=== PATIENT | male | born 1985 | race African-American/Black ===

== ENCOUNTER → 2018-10-27 10:36 | Outpatient (CLI) | payer MEDICAID, SELFPAY ==
[2018-10-26 13:20] VITALS: BMI 33.1
[2018-10-27 10:50] LABS: Bacteria 0 SEEN /hpf (None Seen); Mucous, Urine 0 SEEN /hpf (<or=2+); Red Blood Cells-Urine 0 SEEN /hpf (0-5); Squamous Epithelial Cells - UA 0 SEEN /hpf (0-5); White Blood Cells 0 SEEN /hpf (0-5)
[2018-10-27 11:19] LABS: Absolute Lymphocyte Count 1.55 X10^3/ul (0.83-4.51); Absolute Neutrophil Count 5.1 X10^3/uL (2.0-7.7); Basophil# 0.02 X10^3/uL; Basophil% 0.3 % (0-1); Eosinophil# 0.18 X10^3/uL; Eosinophils% 2.4 % (0-5); Hemoglobin 15.1 g/dl (13.0-16.5); Lymphocyte # 1.55 X10^3/ul (4.0); Lymphocyte % 20.9 % (19-41); Mean Corp Hgb Conc 32.8 g/gl (32-36); Mean Corpuscular Hgb 26.5 pg (27.0-32.0); Mean Corpuscular Volume 80.8 fL (80-94); Monocyte# 0.52 X10^3/uL; Neutrophil # 5.13 X10^3/uL (2.7-7.7); Neutrophil % 69.1 % (47-70); Platelet Count 177 K/mm3 (150-450); RBC Distribution Width CV 14.4 % (11.6-14.6); Red Blood Count 5.69 M/mm3 (4.6-6.2); White Blood Count 7.4 K/mm3 (4.4-11.0)
[2018-10-27 11:21] LABS: POSITIVE COUNT NO; POSITIVE DIFFERENTIAL NO; POSITIVE MORPHOLOGY NO
[2018-10-27 11:48] LABS: AST(SGOT) 20 U/L (15-37); Alanine Aminotransfer ALT/SGPT 43 U/L (16-61); Albumin, Serum 3.5 g/dL (3.2-5.0); Alkaline Phosphatase 78 U/L (45-117); Anion Gap 8 (5-15); BUN 12 mg/dL (7-18); BUN/Creat Ratio 11.7 RATIO (10-20); Calcium,Total 8.5 mg/dL (8.5-10.1); Chloride 111 mmol/L (98-107); Cholesterol 200 mg/dL (200); Creatinine, Serum 1.03 mg/dL (0.70-1.30); EST Glomerular Filtration Rate 88 mL/min (>60); Est Glom Filt Rate - Afr Amer 107 mL/min (>60); Globulin 3.4 g/dL (2.2-4.2); Glucose 92 mg/dL (74-106); High Density Lipoprotein 34 mg/dL; Potassium 4.1 mmol/L (3.5-5.1); Protein, Total 6.9 g/dL (6.4-8.2); Sodium Level 144 mmol/L (136-145); Thyroid Stim Hormone (TSH) 0.72 uIU/mL (0.358-3.74); Triglycerides 182 mg/dL; Very Low Density Lipoprotein 36 mg/dL (5-40)
[2018-10-27 12:20] LABS: HIV - WCH Non-Reactive (Nonreactive)
[2018-10-27 14:23] LABS: Color, Urine Yellow (Yellow); Glucose, Dipstick Normal (Normal); Ketone-Dipstick Negative (Negative); Leukocyte Esterase-Dipstick Negative /ul (Negative); Nitrite-Dipstick Negative (Negative); Occult Blood-Urine Negative /ul (Negative); Protein-Dipstick Negative (Negative); Specific Gravity, Urine 1.005 (1.002-1.030); Urine Bilirubin Dipstick Negative (Negative); Urine Clarity Clear (Clear); Urine Urobilinogen Normal (Normal)
[2018-10-27 15:28] LABS: Chlamydia Trachomatis by PCR Negative (Negative); Neisserai gonorrhoeae by PCR Negative (Negative); Probe Check PASS; Sample Adequacy Control PASS; Specimen Processing Control PASS
[2018-10-28 14:39] LABS: Hep C Antibodies <0.1 s/co ratio (0.0-0.9)
[2018-10-29 03:31] LABS: Rapid Plasmin Reagin (RPR) NONREACTIVE (NONREACTIVE)
== END ==
PROVIDERS: Family Provider Internal Medicine; PCP Internal Medicine; Referring Provider Nurse Practitioner Family; Visit Provider Nurse Practitioner Family
DX: R53.1 Weakness (principal); Z79.899 Other long term (current) drug therapy; Z72.51 High risk heterosexual behavior; Z13.0 Encounter for screening for diseases of the blood and blood-forming organs and certain disorders involving the immune mechanism; Z13.220 Encounter for screening for lipoid disorders; Z13.29 Encounter for screening for other suspected endocrine disorder
CPT/HCPCS: 36415; 80053; 80061; 81001; 84443; 85025; 86592; 86703; 86803; 87491; 87591

== ENCOUNTER → 2018-11-15 10:01 | Outpatient (CLI) | payer MEDICAID, SELFPAY ==
[2018-11-15 09:57] VITALS: BMI 33.1
--- NOTE | 2018-11-15 10:06 | RAD_ITS ---
STUDY: X-RAY - LEFT WRIST REASON FOR EXAM: Male, 33 years old. Pain, no injury TECHNIQUE: 3 view(s) of the wrist were obtained. COMPARISON: None. FINDINGS: There is a chronic small indentation of the cortical margin of the triquetral bone potentially associated with chronic impaction upon the ulnar styloid. There is however no irregularity of the ulnar styloid. Does the patient have lateral wrist pain? Intercarpal articulations normal. Radiocarpal articulation and distal radioulnar joint normal. Soft tissues normal. RAD/Wrist min 3 Views IMPRESSION: Cortical indentation of the lateral margin of the triquetral bone could potentially be associated with ulnar impaction. Correlate clinically for lateral wrist pain. Otherwise unremarkable study. Electronically Signed: Donald Alba MD at 10:41 EST Tel , Service support ,
== END ==
PROVIDERS: Family Provider Internal Medicine; PCP Internal Medicine; Referring Provider Orthopaedic Surgery; Visit Provider Orthopaedic Surgery
DX: M25.531 Pain in right wrist (principal)
CPT/HCPCS: 73110

== ENCOUNTER 2019-02-23 10:58 | Emergency (ER) | payer MEDICAID, SELFPAY ==
[2018-12-09 10:27] VITALS: BMI 33.1
[2019-02-23 11:00] VITALS: BP 151/100; PULSE 77; RESP 18; TEMP 36.9; O2SAT 99; BMI 34.1
--- NOTE | 2019-02-23 11:16 | CT_ITS ---
STUDY: CT BRAIN WITH AND WITHOUT CONTRAST REASON FOR EXAM: Male, 33 years old. Migraine headaches RADIATION DOSAGE (If Supplied By Facility): CTDIvol = ( 60.81 ) mGy, DLP = ( 2126.79 ) mGycm TECHNIQUE: Transaxial CT imaging of the brain was performed pre and post contrast administration. The examination was performed with intravenous administration of 50CC IV Isovue 370. Individualized dose optimization techniques were used for this CT. COMPARISON: None. FINDINGS: Normal soft tissue structures. Normal calvarium. Normal size ventricles and extra-axial spaces for the patient's age. Normal white matter tracts of the cerebral hemispheres. Normal basal ganglia and thalami. Normal brainstem. Normal cerebellum. There is no intracranial hemorrhage. There are no findings of an acute ischemic infarction. Normal visualized paranasal sinuses. No suspicious enhancing lesion. CT/Brain/Head W/WO Contrast IMPRESSION: Normal unenhanced and enhanced CT scan of the brain. Electronically Signed: Mainor Macias MD at 12:11 EDT , Service support ,
[2019-02-23] MEDS: Ketorolac 30 MG/ML Syringe IV (11:36)
[2019-02-23] MEDS: 0.9% Normal Saline 1,000 ML 1000 ML IV (11:36)
[2019-02-23] MEDS: Ondansetron 4 MG/2 ML Vial IV (11:36)
[2019-02-23 11:46] LABS: Absolute Lymphocyte Count 1.43 X10^3/ul (0.83-4.51); Absolute Neutrophil Count 5.9 X10^3/uL (2.0-7.7); Basophil# 0.02 X10^3/uL; Basophil% 0.2 % (0-1); Eosinophil# 0.18 X10^3/uL; Eosinophils% 2.2 % (0-5); Hematocrit 48.2 % (40-54); Hemoglobin 16.4 g/dl (13.0-16.5); Lymphocyte # 1.43 X10^3/ul (4.0); Lymphocyte % 17.2 % (19-41); Mean Corpuscular Hgb 26.4 pg (27.0-32.0); Mean Corpuscular Volume 77.5 fL (80-94); Monocyte# 0.76 X10^3/uL; Monocyte% 9.2 % (0-10); Neutrophil # 5.87 X10^3/uL (2.7-7.7); Neutrophil % 70.8 % (47-70); Platelet Count 220 K/mm3 (150-450); RBC Distribution Width CV 14.7 % (11.6-14.6); RBC Distribution Width SD 40.9 fl (35.1-43.9); Red Blood Count 6.22 M/mm3 (4.6-6.2); White Blood Count 8.3 K/mm3 (4.4-11.0)
[2019-02-23 11:47] LABS: POSITIVE COUNT NO; POSITIVE DIFFERENTIAL NO; POSITIVE MORPHOLOGY NO
[2019-02-23 11:53] LABS: Anion Gap 6 (5-15); BUN 9 mg/dL (7-18); BUN/Creat Ratio 8.7 RATIO (10-20); Calcium,Total 9.1 mg/dL (8.5-10.1); Chloride 109 mmol/L (98-107); Creatinine, Serum 1.04 mg/dL (0.70-1.30); EST Glomerular Filtration Rate 87 mL/min (>60); Est Glom Filt Rate - Afr Amer 105 mL/min (>60); Estimated Creatinine Clearance 117.46 ml/min; Glucose 100 mg/dL (74-106); Sodium Level 142 mmol/L (136-145)
--- NOTE | 2019-02-23 12:35 | ED.VISSUMM ---
- ER Visit Summary Date of Service: 02/23/19 Chief Complaint: Possible seizure History of Present Illness: The patient is a 33 M who reports daily headaches for the last 2 weeks to the right frontal region. Patient states he will occasionally get spasms of pain in the muscles in his right upper face. He went to urgent care and was sent to the ER for CT imaging. Patient does report to have family history of brain cancer. He is also concerned about sleep apnea and would like to be tested for that. Patient states he snores and will wake up with inability to breathe. Physical Examination: Blood pressure is 121/100, otherwise vitals normal. Patient sitting upright in bed no acute distress. Head and neck examination is normal. Heart is regular rate and rhythm. Palpable pulses are noted throughout. Lungs are clear with good air movement throughout. Abdomen is soft and nontender. Bowel sounds are noted. Extremity examination is unremarkable with full range of motion. Neurologic examination reveals no focal deficits. Test Results: CBC and chemistry studies normal. CT head with contrast is normal. Emergency Department Course and Treatment: Patient was given Toradol, Zofran, and IV fluids. On repeat evaluation he is resting comfortably. He states he does still have a headache. I did advise him that this may be secondary to sleep apnea. I will speak with his PCP to help arrange close follow-up and hopefully sleep study. Treatment Plan: [] Disposition: Discharge Impression: 1. Cephalgia 2. Sleep apnea This note was generated with [employer] dictation software. It may contain incorrect words, spelling, and punctuation that were not noted in review of the chart prior to signing ED Disposition - Plan for ED Patient: Disposition: Home or Assisted Living Instructions: ED Cephalgia Unspecified, ED Apnea Sleep Obstructive Referrals: Alex Mercado MD [Primary Care Provider] - As soon as possible
[2019-02-23 13:03] VITALS: RESP 18
== END 2019-02-23 13:04 | disposition home or self-care (01) ==
PROVIDERS: Emergency Provider Emergency Medicine; Family Provider Internal Medicine; PCP Internal Medicine
DX: R51 Headache (principal); G47.30 Sleep apnea, unspecified; M79.18 Myalgia, other site; Z72.0 Tobacco use
CPT/HCPCS: 70470; 80048; 85025; 96361; 96374; 96375; 99283; J7030; Q9967; J2405